=== PATIENT | female | born 1945 | race Caucasian/White ===

== ENCOUNTER 2016-07-16 09:11 | Inpatient (IN) | payer MEDICARE ==
[2016-07-16 10:05] LABS: Urine Drugs of Abuse Note Disclamer
[2016-07-16] MEDS ORDERED: ATIVAN ONE (10:12)
[2016-07-16] MEDS ORDERED: KEPPRA 1,000 MG/NS 0.75% 100ML 1,000 MG/100 ML BAG IV ONE ×2 (10:15→10:19)
[2016-07-16] MEDS ORDERED: ATIVAN IV ONE (10:15)
[2016-07-16 10:34] LABS: Basophils % (Auto) 0.8 % (0.0-1.8); Eosinophils % (Auto) 0.8 % (0.0-4.3); Mean Corpuscular HGB Conc 30 % (30-34); Mean Corpuscular Hemoglobin 28 pg (28-32); Mean Corpuscular Volume 93 fl (79-97); Platelet Count 806 K/mm3 (140-440); Red Blood Count 4.53 M/mm3 (3.65-5.03); Red Cell Distribution Width 19.3 % (13.2-15.2); White Blood Count 17.1 K/mm3 (4.5-11.0)
[2016-07-16 10:37] LABS: Bacteria,Urine 2+ /HPF (Negative); Bilirubin,Urine NEG (Negative); Blood,Urine NEG (Negative); Granular Casts,Urine 18 /LPF; Ketones,Urine NEG (Negative); Leukocyte Esterase,Urine NEG (Negative); Mucus,Urine 2+ /HPF; Nitrite,Urine NEG (Negative); Urobilinogen,Urine < 2.0 mg/dL (<2.0)
[2016-07-16 10:57] LABS: Albumin/Globulin Ratio 1.3 %; BUN/Creatinine Ratio 22.72; Bilirubin,Total 0.3 mg/dL (0.1-1.2); Calcium 8.6 mg/dL (8.4-10.2); Chloride 107.6 mmol/L (98-107); Magnesium 1.8 mg/dL (1.7-2.3); Total Protein 7.1 g/dL (6.3-8.2)
[2016-07-16 11:07] LABS: Hematocrit 42.5 % (30.3-42.9); Hemoglobin 12.8 gm/dl (10.1-14.3)
--- NOTE | 2016-07-16 11:19 | Cat Scan Report ---
CT HEAD WITHOUT CONTRAST: HISTORY: Seizure, altered mental status, headache. TECHNIQUE: Sequential CT images without contrast. FINDINGS: Images obtained show mild bilateral prominence of the sulci and ventricles. There are no abnormal intra- or extra-axial blood or fluid collections. There are no focal masses or evidence of mass effect. The huang white matter differentiation appears within normal limits. Regions of periventricular decreased attenuation are consistent with microangiopathic ischemic disease. The posterior fossa structures including the fourth ventricle, cerebellum, and brainstem appear normal. IMPRESSION: Evidence of mild atrophy and microangiopathic ischemic disease. No acute intracranial process noted.
[2016-07-16] MEDS ORDERED: NACL 0.9% 1000 ML IV ONE (11:25)
--- NOTE | 2016-07-16 11:33 | Emergency Department Report ---
HPI - General Chief Complaint: Altered Mental Status Time Seen by Provider: 07/16/16 10:22 - HPI HPI: Chief complaint: Altered mental status HPI: Patient who lives in some sort of personal detention was brought in for altered mental status by EMS. My first contact with the patient was when she had a seizure here in the emergency department. Patient was given a gram of Keppra and required Ativan while she was having a CAT scan of her head. Patient was seen in at [facility] and treated for hypothermia and a urinary tract infection in May 2016. Unable to get any history from the patient. Patient lives in a transitional type of setting not really a personal detention and according to Ms. Clark she usually gets up and comes down stairs on her own. Patient does not take her medications. According to Ms. Clark she just became altered today. Mode of arrival: EMS Source: Nursing notes and Ms. Clark Began: This morning Duration: Unable to assess Context: See above Quality: Unable to assess Severity: Unable to assess any further Improved with: Worsened with: Associated signs and symptoms: ED Past Medical Hx - Past Medical History Previous Medical History?: Yes Hx Hypertension: Yes Hx Psychiatric Treatment: Yes (schizophrenia) Hx Dementia: Yes - Surgical History Past Surgical History?: Yes Hx Appendectomy: Yes - Social History Smoking Status: Never Smoker Substance Use Type: Prescribed - Medications Home Medications: Home Medications Medication Instructions Recorded Confirmed Last Taken Type Donepezil [Aricept] 10 mg PO QDAY 12/30/14 12/30/14 Unknown History Hydrochlorothiazide [HCTZ] 12.5 mg PO QDAY 12/30/14 12/30/14 Unknown History Memantine HCl [Namenda] 10 mg PO BID 12/30/14 12/30/14 Unknown History Carvedilol [Coreg] 6.25 mg PO BID #60 tablet 05/06/15 Unknown Rx Memantine Xr [Namenda Xr] 28 mg PO QDAY@0800 #60 cap 05/06/15 Unknown Rx Ziprasidone [Geodon] 20 mg PO BIDDIAB #60 capsule 05/06/15 Unknown Rx hydrALAZINE [Apresoline TAB] 50 mg PO Q8HR #90 tablet 05/06/15 Unknown Rx ED Review of Systems ROS: Stated complaint: ALTERED MENTAL STATUS Other details as noted in HPI Comment: Unobtainable due to pts medical conditions (patient post ictal and sedated) Physical Exam - Physical Exam Vital Signs: Vital Signs 07/16/16 07/16/16 07/16/16 09:32 10:07 10:09 Temperature 97 F L 97.4 F L Pulse Rate 120 H 68 76 Respiratory 20 18 Rate Blood Pressure 124/98 Blood Pressure 180/123 [Left] O2 Sat by Pulse 92 94 Oximetry 07/16/16 10:12 Temperature Pulse Rate Respiratory 20 Rate Blood Pressure Blood Pressure [Left] O2 Sat by Pulse 95 Oximetry Physical Exam: GENERAL: The patient is a thin elderly -Bul[place] female who is post ictal. HEENT: Normocephalic. Atraumatic. Edentulous. Patient has dry mucous membranes. NECK: Supple. No meningitic signs are noted. There is no adenopathy noted. CHEST/LUNGS: Clear to auscultation. There is no respiratory distress noted. HEART/CARDIOVASCULAR: Irregular alternating between normal sinus and tachycardia ABDOMEN: Abdomen is soft, nontender. Patient has normal bowel sounds. There is no abdominal distention. SKIN: There is no rash. There is no edema. There is no diaphoresis. NEURO: The patient is post ictal. MUSCULOSKELETAL: There is no tenderness or deformity. There is no evidence of acute injury. ED Course Vital Signs 07/16/16 07/16/16 07/16/16 09:32 10:07 10:09 Temperature 97 F L 97.4 F L Pulse Rate 120 H 68 76 Respiratory 20 18 Rate Blood Pressure 124/98 Blood Pressure 180/123 [Left] O2 Sat by Pulse 92 94 Oximetry 07/16/16 10:12 Temperature Pulse Rate Respiratory 20 Rate Blood Pressure Blood Pressure [Left] O2 Sat by Pulse 95 Oximetry - Reevaluation(s) Reevaluation #1: 07/16/16 11:56 Liza [facility] was consulted for possible sick sinus syndrome and will see the patient in consultation. Hospitalist will admit the patient. Patient was given a liter of normal saline and 20 mEq of potassium will be given IV as K riders ED Medical Decision Making - Lab Data Result diagrams: 07/16/16 10:14 07/16/16 10:14 Laboratory Tests 07/16/16 07/16/16 07/16/16 10:00 10:00 10:14 Lactic Acid 10.6 H* TSH Ur Leukocyte Esterase Neg Urine WBC (Auto) 8.0 H Urine RBC (Auto) 4.0 U Epithel Cells (Auto) 3.0 Urine Bacteria (Auto) 2+ Salicylates Urine Opiates Screen Presumptive negative Urine Methadone Screen Presumptive negative Acetaminophen Ur Barbiturates Screen Presumptive negative Ur Phencyclidine Scrn Presumptive negative Ur Amphetamines Screen Presumptive negative U Benzodiazepines Scrn Presumptive negative Urine Cocaine Screen Presumptive negative U Marijuana (THC) Screen Presumptive negative Plasma/Serum Alcohol 07/16/16 07/16/16 07/16/16 10:14 10:14 10:14 Lactic Acid TSH 9.470 H Ur Leukocyte Esterase Urine WBC (Auto) Urine RBC (Auto) U Epithel Cells (Auto) Urine Bacteria (Auto) Salicylates < 0.3 L Urine Opiates Screen Urine Methadone Screen Acetaminophen < 15.0 Ur Barbiturates Screen Ur Phencyclidine Scrn Ur Amphetamines Screen U Benzodiazepines Scrn Urine Cocaine Screen U Marijuana (THC) Screen Plasma/Serum Alcohol 07/16/16 10:14 Lactic Acid TSH Ur Leukocyte Esterase Urine WBC (Auto) Urine RBC (Auto) U Epithel Cells (Auto) Urine Bacteria (Auto) Salicylates Urine Opiates Screen Urine Methadone Screen Acetaminophen Ur Barbiturates Screen Ur Phencyclidine Scrn Ur Amphetamines Screen U Benzodiazepines Scrn Urine Cocaine Screen U Marijuana (THC) Screen Plasma/Serum Alcohol < 0.01 - EKG Data -: EKG Interpreted by Me EKG shows normal: sinus rhythm Rate: normal (70) - EKG Data When compared to previous EKG there are: no significant change Interpretation: other (normal sinus rhythm with sinus arrhythmia, nonspecific ST -T wave changes.) 07/16/16 11:59 Rhythm strips evaluated and patient alternates between sinus rhythm,, narrow complex tachycardia and a few runs of wide-complex tachycardia and an episode of bradycardia consistent with complete heart block that was short-lived and resolved spontaneously. Critical care attestation.: If time is entered above; I have spent that time in minutes in the direct care of this critically ill patient, excluding procedure time. ED Disposition Clinical Impression: Seizure, Dehydration with hypernatremia, Hypokalemia, Elevated TSH, History of schizophrenia, Leukocytosis Disposition: OP ADMITTED IP TO THIS HOSP Is pt being admited?: Yes Does the pt Need Aspirin: Yes Condition: Serious Time of Disposition: 12:02
[2016-07-16] MEDS: KCL 10MEQ/100ML 10 MEQ/100 ML BAG IV SCH ×2 (11:45→13:07)
[2016-07-16] MEDS ORDERED: ROCEPHIN/NS 1 GM/50 ML 1 GM/50 ML BAG IV ONE (12:05)
[2016-07-16] MEDS ORDERED: ASPIRIN PR ONE (12:12)
--- NOTE | 2016-07-16 12:12 | Admit Criteria Form ---
Admission Criteria Documentation: MENTAL STATUS CHANGE Clinical Indications for Inpatient Care (Place 'X' for any and all applicable criteria): Ongoing inpatient care may be needed for ANY ONE of the following(1)(2)(3)(5)(6) : [X ]I. Suspected serious etiology (eg, medical disorder, CYTOGENETICIST event) of mental status change [ ]II. Danger to self or others not manageable at lower level of care [ ]III. Grave disability (eg, inability to perform self care necessary at lower level of care) [ ]IV. Agitation or inappropriate behavior interfering with care for primary condition (eg, attempting to discontinue lines or drains prematurely, unable to cooperate with respiratory care) [ ]V. Delirium [A] [D][E] as described by ANY ONE of the following(26): [ ]a) Delirium due to alcohol or sedative [F] withdrawal [ ]b) Delirium of uncertain etiology that has not responded to appropriate empiric treatment [ ]c) Delirium that prevents performance of a life-sustaining function (eg, feeding or hydrating oneself) [ X]. General contraindications and/or Inappropriate clinical situations for Observational Care in patients with Mental Status Change, when ANY ONE of the following is required: [X ]a) Prediction of prolongation of LOS based on ANY ONE of the following may be considered as a contraindication for observational care 2, 3, 4, 5, 6, 7, 8, 9, 10, 11 [ ]i) Age > 65 yrs. [ ]ii) Patient arriving by ambulance [ ]iii) Patient with high acuity [ ]iv) Patient requiring vital sign monitoring [ ]v) Patient on IV medication [ ]b) Systolic blood pressures 180mmHg 3,12 [ ]c) Patient with altered mental status including delirium and other alteration of consciousness, (3) [ ]d) Patient whose discharge disposition will be to a intermediate home or rehabilitation home should not be managed in Emergency Department Observation Unit. CMS rule requires 3 days hospital stay before such placement.3,13 [ ]e) Patient with failure to thrive due to broad array of etiologies 3,16,17 [ ]f) Inability to ambulate 3,14 Extended stay beyond goal length of stay for the primary condition may be needed until ALL of the following are present(3)(5): [ ]a) Underlying medical etiology of mental status change is absent, or has been established and adequately treated [ ]b) Danger to self or others is absent or manageable at lower level of care. [ ]c) Behavior crisis management, including physical or chemical restraints, is not required or available at lower level of car [ ]d) Substance or alcohol withdrawal is absent or manageable at lower level of care. [ ]e) Behavioral symptoms (eg, agitation, somnolence, inappropriate behavior) are absent, or are manageable at lower level of care. The original [facility] content created by [facility] has been revised. The portions of the content which have been revised are identified through the use of italic text or in bold, and [facility] has neither reviewed nor approved the modified material. All other unmodified content is copyright [facility]. Please see references footnoted in the original [facility] edition 2016 Admission Criteria Met: Yes
--- NOTE | 2016-07-16 12:55 | Consultation ---
<SÁNCHEZ OSORIO - Last Filed: 07/16/16 15:13> History of Present Illness Consult date: 07/16/16 Consult reason: arrhythmia History of present illness: This is a 71yr old woman that resides at a personnel [facility] who presents to the ED with altered mental status. History unobtainable from patient. Cardiac consultation requested for questionable sick sinus syndrome. Review of telemetry strips shows marked sinus bradycardia followed by a narrow complex tachycardia that resolved spontaneously. The arrhythmia is reported to have occurred while the patient was seizing. Laboratory workup in the ED shows multiple metabolic abnormalities including a potassium of 3.0, TSH of 9.4 and lactic acid of 10.6. An ECG done post seizure shows a sinus rhythm with sinus arrhythmias. No acute ischemic changes. Medications and Allergies Allergies Allergy/AdvReac Type Severity Reaction Status Date / Time No Known Allergies Allergy Unverified 12/30/14 05:41 Home Medications Medication Instructions Recorded Confirmed Last Taken Type Donepezil [Aricept] 10 mg PO QDAY 12/30/14 07/16/16 Unknown History Hydrochlorothiazide [HCTZ] 12.5 mg PO QDAY 12/30/14 07/16/16 Unknown History Memantine HCl [Namenda] 10 mg PO BID 12/30/14 07/16/16 Unknown History Carvedilol [Coreg] 6.25 mg PO BID #60 tablet 05/06/15 07/16/16 Unknown Rx Ziprasidone [Geodon] 20 mg PO BIDDIAB #60 capsule 05/06/15 07/16/16 Unknown Rx Benztropine [Cogentin] 0.5 mg PO BID 07/16/16 07/16/16 Unknown History Ciprofloxacin HCl [Ciprofloxacin 500 mg PO Q12HR 07/16/16 07/16/16 Unknown History TAB] Lurasidone HCl [Latuda] 40 mg PO QDAY 07/16/16 07/16/16 Unknown History amLODIPine [Norvasc] 5 mg PO DAILY 07/16/16 07/16/16 Unknown History Active Meds: Active Medications Potassium Chloride (Kcl 10meq/100ml) 10 meq in 100 mls @ 100 mls/hr IV Q1H ERLINDA Stop: 07/16/16 13:59 Last Admin: 07/16/16 11:45 Dose: 100 mls/hr Physical Examination Vital Signs Temp Pulse Resp BP Pulse Ox 97 F L 120 H 20 124/98 92 07/16/16 09:32 07/16/16 09:32 07/16/16 09:32 07/16/16 09:32 07/16/16 09:32 General appearance: no acute distress Cardiac: Positive: Reg Rate and Rhythm Results 07/16/16 10:14 07/16/16 10:14 Cardiac Enzymes 07/16/16 Range/Units 10:14 AST 63 H (5-40) units/L CBC 07/16/16 Range/Units 10:14 WBC 17.1 H (4.5-11.0) K/mm3 RBC 4.53 (3.65-5.03) M/mm3 Hgb 12.8 (10.1-14.3) gm/dl Hct 42.5 (30.3-42.9) % Plt Count 806 H (140-440) K/mm3 Lymph # 2.6 (1.2-5.4) K/mm3 [place] # 0.7 (0.0-0.8) K/mm3 Eos # 0.1 (0.0-0.4) K/mm3 Baso # 0.1 (0.0-0.1) K/mm3 Comprehensive Metabolic Panel 07/16/16 Range/Units 10:14 Sodium 157 H (137-145) mmol/L Potassium 3.0 L (3.6-5.0) mmol/L Chloride 107.6 H (98-107) mmol/L Carbon Dioxide 25 (22-30) mmol/L BUN 25 H (7-17) mg/dL Creatinine 1.1 (0.7-1.2) mg/dL Glucose 138 H (65-100) mg/dL Calcium 8.6 (8.4-10.2) mg/dL AST 63 H (5-40) units/L ALT 27 (7-56) units/L Alkaline Phosphatase 75 (35-129) units/L Total Protein 7.1 (6.3-8.2) g/dL Albumin 4.0 (3.9-5) g/dL EKG interpretations - Telemetry EKG Rhythm: Sinus Rhythm Assessment and Plan Altered mental status no acute intracranial process by head CT Hypertension -uncontrolled Sinus bradycardia followed by narrow complex tachycardia likely due to multiple metabolic abnormalities Hx of Schizophrenia Dementia Correct metabolic abnormalities. Optimal BP management. Echocardiogram for LVEF assessment. <CORRINE,CHITURU - Last Filed: 07/17/16 13:48> Medications and Allergies Active Meds: Active Medications Acetaminophen (Tylenol) 650 mg PO Q4H PRN PRN Reason: Pain MILD(1-3)/Fever >100.5/CM Amlodipine Besylate (Norvasc) 5 mg PO DAILY [facility] Last Admin: 07/17/16 11:19 Dose: 5 mg Benztropine Mesylate (Cogentin) 0.5 mg PO BID [facility] Last Admin: 07/17/16 11:18 Dose: 0.5 mg Bisacodyl (Dulcolax) 10 mg OR QDAY PRN PRN Reason: Constipation unrelieved by MOM Carvedilol (Coreg) 6.25 mg PO BID [facility] Last Admin: 07/17/16 11:18 Dose: 6.25 mg Donepezil HCl (Aricept) 10 mg PO QDAY [facility] Last Admin: 07/17/16 11:19 Dose: 10 mg Enoxaparin Sodium (Lovenox) 40 mg SUB-Q QDAY [facility] Last Admin: 07/17/16 11:49 Dose: Not Given Hydralazine HCl (Apresoline) 10 mg IV Q4HR PRN PRN Reason: Blood Pressure Last Admin: 07/17/16 02:04 Dose: 10 mg Hydromorphone HCl (Dilaudid) 0.5 mg IV Q3H PRN PRN Reason: Pain , Severe (7-10) Last Admin: 07/17/16 02:02 Dose: 0.5 mg Ceftriaxone Sodium (Rocephin/Ns 2 Gm/100 Ml) 2 gm in 100 mls @ 200 mls/hr IV Q24H [facility] Last Admin: 07/16/16 23:56 Dose: 200 mls/hr Dextrose (D5w) 1,000 mls @ 100 mls/hr IV DIRECT [facility] Last Admin: 07/17/16 08:49 Dose: 100 mls/hr Levetiracetam 500 mg/ Dextrose 105 mls @ 400 mls/hr IV Q12HR [facility] Last Admin: 07/17/16 11:41 Dose: 400 mls/hr Magnesium Hydroxide (Milk Of Magnesia) 30 ml PO Q4H PRN PRN Reason: Constipation Memantine (Namenda Xr) 28 mg PO QDAY [facility] Last Admin: 07/17/16 11:19 Dose: 28 mg Miscellaneous Medication (Lurasidone Hcl [Latuda]) 40 mg PO QDAY [facility] Ondansetron HCl (Zofran) 4 mg IV Q3H PRN PRN Reason: N/V unrelieved by Reglan Last Admin: 07/17/16 07:13 Dose: 4 mg Oxycodone/Acetaminophen (Percocet 5/325) 1 tab PO Q6H PRN PRN Reason: Pain, Moderate (4-6) Ziprasidone (Geodon) 20 mg PO BIDDIAB [facility] Last Admin: 07/17/16 08:28 Dose: 20 mg Physical Examination Vital Signs Temp Pulse Resp BP Pulse Ox 97 F L 120 H 20 124/98 92 07/16/16 09:32 07/16/16 09:32 07/16/16 09:32 07/16/16 09:32 07/16/16 09:32 Results 07/16/16 10:14 07/16/16 10:14 Assessment and Plan - Patient Problems (1) Cardiac arrhythmia Current Visit: Yes Status: Acute Qualifiers: Arrhythmia type: A Atrial fibrillation type: A Atrial flutter type: A Premature depolarization type: P Plan to address problem: The patient's a 71-year-old woman who lives in a [facility], with multiple medical problems. She was admitted to the emergency room with altered mental status. During her emergency room course, she developed a prolonged seizure episode, which was witnessed by the medical team, and apparently resolved spontaneously. Immediately following the seizure, she was noted to develop transient, sinus bradycardia. This was quickly followed by increased supraventricular ectopy, and a short burst of atrial tachycardia. After these rhythm changes, she then settled back into a stable sinus rhythm. Twelve-lead EKGs on presentation and also following the seizure episode and subsequent arrhythmias, where both are normal sinus rhythm, no ischemic changes. The patient's blood pressure remained stable, no hemodynamic changes were reported. No cardiac stimulant agents were administered following the seizure episode. Cardiac consultation was requested for further assessment of the cardiac arrhythmias. Recommendations: The transient bradycardia following seizure episode is likely vagal response. We will get an echocardiogram for left ventricular function assessment. Get prior records of previous cardiac workup and history.
[2016-07-16] MEDS ORDERED: NORMODYNE IV ONE (14:12)
[2016-07-16] MEDS ORDERED: WATER FOR INJ (PF) 10 ML ONE (18:07)
[2016-07-16] MEDS ORDERED: GEODON IM ONE (18:08)
--- NOTE | 2016-07-16 20:01 | History and Physical Report ---
History of Present Illness Date of examination: 07/16/16 Date of admission: 07/16/16 Chief complaint: Altered Mental status since AM History of present illness: 71y/o female sent from [facility] for [facility].Since AM.Patient had UTI and hypothermia in MAY 2016 -was treated at [facility] .Able to come to Dining room for food.Since AM altered sensorium.No fever/chills/Sob. Had seizure in CT room and was given keppra and ativan Past History Past Medical History: hypertension, other (Schizophrenia and Dementia) Past Surgical History: appendectomy Social history: single, other (Lives in a Personal group home/[facility]) Medications and Allergies Allergies Allergy/AdvReac Type Severity Reaction Status Date / Time No Known Allergies Allergy Unverified 12/30/14 05:41 Home Medications Medication Instructions Recorded Confirmed Last Taken Type Donepezil [Aricept] 10 mg PO QDAY 12/30/14 07/16/16 Unknown History Hydrochlorothiazide [HCTZ] 12.5 mg PO QDAY 12/30/14 07/16/16 Unknown History Memantine HCl [Namenda] 10 mg PO BID 12/30/14 07/16/16 Unknown History Carvedilol [Coreg] 6.25 mg PO BID #60 tablet 05/06/15 07/16/16 Unknown Rx Ziprasidone [Geodon] 20 mg PO BIDDIAB #60 capsule 05/06/15 07/16/16 Unknown Rx Benztropine [Cogentin] 0.5 mg PO BID 07/16/16 07/16/16 Unknown History Ciprofloxacin HCl [Ciprofloxacin 500 mg PO Q12HR 07/16/16 07/16/16 Unknown History TAB] Lurasidone HCl [Latuda] 40 mg PO QDAY 07/16/16 07/16/16 Unknown History amLODIPine [Norvasc] 5 mg PO DAILY 07/16/16 07/16/16 Unknown History Review of Systems All systems: negative Neurological: seizures, change in mentation, confusion, memory loss Psychiatric: confusion Exam - Constitutional Vitals: Temp Pulse Resp BP Pulse Ox 97.2 F L 77 24 166/110 96 07/16/16 18:10 07/16/16 18:40 07/16/16 18:40 07/16/16 18:40 07/16/16 18:40 General appearance: Present: no acute distress, well-nourished - EENT Eyes: Present: PERRL ENT: hearing intact, clear oral mucosa - Neck Neck: Present: supple, normal ROM - Respiratory Respiratory effort: normal Respiratory: bilateral: CTA - Cardiovascular Heart Sounds: Present: S1 & S2. Absent: rub, click - Extremities Extremities: pulses symmetrical, No edema Peripheral Pulses: within normal limits - Abdominal General gastrointestinal: Present: soft, non-tender, non-distended, normal bowel sounds Female genitourinary: Present: normal - Integumentary Integumentary: Present: clear, warm, dry - Musculoskeletal Musculoskeletal: gait normal, strength equal bilaterally - Psychiatric Psychiatric: appropriate mood/affect, intact judgment & insight - Neurologic Neurologic: CNII-XII intact, moves all extremities Results - Labs CBC & Chem 7: 07/16/16 10:14 07/16/16 10:14 Labs: Abnormal lab results 07/16/16 07/16/16 07/16/16 Range/Units 10:00 10:14 10:14 WBC 17.1 H (4.5-11.0) K/mm3 RDW 19.3 H (13.2-15.2) % Plt Count 806 H (140-440) K/mm3 Seg Neutrophils % 79.3 H (40.0-70.0) % Seg Neutrophils # 13.5 H (1.8-7.7) K/mm3 Sodium 157 H (137-145) mmol/L Potassium 3.0 L (3.6-5.0) mmol/L Chloride 107.6 H (98-107) mmol/L BUN 25 H (7-17) mg/dL Glucose 138 H (65-100) mg/dL Lactic Acid (0.7-2.0) mmol/L AST 63 H (5-40) units/L TSH (0.270-4.200) mlU/mL Urine WBC (Auto) 8.0 H (0.0-6.0) /HPF Salicylates (2.8-20.0) mg/dL 07/16/16 07/16/16 07/16/16 Range/Units 10:14 10:14 10:14 WBC (4.5-11.0) K/mm3 RDW (13.2-15.2) % Plt Count (140-440) K/mm3 Seg Neutrophils % (40.0-70.0) % Seg Neutrophils # (1.8-7.7) K/mm3 Sodium (137-145) mmol/L Potassium (3.6-5.0) mmol/L Chloride (98-107) mmol/L BUN (7-17) mg/dL Glucose (65-100) mg/dL Lactic Acid 10.6 H* (0.7-2.0) mmol/L AST (5-40) units/L TSH 9.470 H (0.270-4.200) mlU/mL Urine WBC (Auto) (0.0-6.0) /HPF Salicylates < 0.3 L (2.8-20.0) mg/dL 07/16/16 Range/Units 12:09 WBC (4.5-11.0) K/mm3 RDW (13.2-15.2) % Plt Count (140-440) K/mm3 Seg Neutrophils % (40.0-70.0) % Seg Neutrophils # (1.8-7.7) K/mm3 Sodium (137-145) mmol/L Potassium (3.6-5.0) mmol/L Chloride (98-107) mmol/L BUN (7-17) mg/dL Glucose (65-100) mg/dL Lactic Acid 2.6 H* (0.7-2.0) mmol/L AST (5-40) units/L TSH (0.270-4.200) mlU/mL Urine WBC (Auto) (0.0-6.0) /HPF Salicylates (2.8-20.0) mg/dL Short CBC 07/16/16 Range/Units 10:14 WBC 17.1 H (4.5-11.0) K/mm3 Hgb 12.8 (10.1-14.3) gm/dl Hct 42.5 (30.3-42.9) % Plt Count 806 H (140-440) K/mm3 BMP 07/16/16 10:14 Sodium 157 H Potassium 3.0 L Chloride 107.6 H Carbon Dioxide 25 BUN 25 H Creatinine 1.1 Glucose 138 H Calcium 8.6 Liver Function 07/16/16 Range/Units 10:14 Total Bilirubin 0.3 (0.1-1.2) mg/dL AST 63 H (5-40) units/L ALT 27 (7-56) units/L Alkaline Phosphatase 75 (35-129) units/L Albumin 4.0 (3.9-5) g/dL Urine 07/16/16 Range/Units 10:00 Urine Color Yellow (Yellow) Urine pH 5.0 (5.0-7.0) Ur Specific [place] 1.024 (1.003-1.030) Urine Protein 100 mg/dl (Negative) mg/dL Urine Glucose (UA) Neg (Negative) mg/dL Assessment and Plan - Patient Problems (1) Acute hypernatremia Current Visit: Yes Status: Acute Plan to address problem: Etio unclear.Poor po intake??IV D51/2 NS for now. (2) Leukocytosis Current Visit: Yes Status: Acute Qualifiers: Leukocytosis type: L Plan to address problem: IV rocephin for UTI (3) Hypokalemia Current Visit: Yes Status: Acute Plan to address problem: Supplemented.Sec to HCTZ HCTZ discontinued (4) Seizure Current Visit: Yes Status: Acute Plan to address problem: New onset Iv keppra for now.Transition to po Keppra (5) Elevated TSH Current Visit: Yes Status: Acute Plan to address problem: Thyroid panel ordered (6) Schizophrenia Current Visit: Yes Status: Acute Qualifiers: Schizophrenia type: S (7) Schizophrenia Current Visit: No Status: Chronic Qualifiers: Schizophrenia type: paranoid schizophrenia Qualified Code(s): F20.0 - Paranoid schizophrenia Plan to address problem: cont geodon (8) Dementia Current Visit: Yes Status: Chronic Qualifiers: Dementia type: vascular dementia Alzheimer's disease onset: A Dementia behavioral disturbance: D Plan to address problem: Cont Namenda (9) Sepsis Current Visit: Yes Status: Acute Qualifiers: Sepsis type: sepsis due to unspecified organism Qualified Code(s): A41.9 - Sepsis, unspecified organism Plan to address problem: IV rocephin for now (10) DVT prophylaxis Current Visit: Yes Status: Acute Plan to address problem: Lkovenox 40 mg sq qd
[2016-07-16] MEDS ORDERED: ZOFRAN IV PRN (20:04)
[2016-07-16] MEDS ORDERED: TYLENOL PO PRN (20:04)
[2016-07-16] MEDS ORDERED: PERCOCET 5/325 PO PRN (20:04)
[2016-07-16] MEDS ORDERED: DILAUDID IV PRN (20:04)
[2016-07-16] MEDS ORDERED: DULCOLAX PR PRN (20:04)
[2016-07-16] MEDS ORDERED: MILK OF MAGNESIA PO PRN (20:04)
[2016-07-16] MEDS ORDERED: ROCEPHIN 2,000 MG in NACL 0.9% 50 ML IV SCH (21:00)
[2016-07-16] MEDS ORDERED: D5W/0.45% NACL/KCL 20 MEQ 20 MEQ/1,000 ML BAG IV SCH (21:00)
[2016-07-16] MEDS ORDERED: NORVASC ONE (21:15)
[2016-07-16] MEDS ORDERED: APRESOLINE IV PRN (21:18)
[2016-07-16] MEDS: NORVASC PO SCH (21:25)
[2016-07-16] MEDS ORDERED: NON-FORMULARY (Memantine Hcl [Namenda] 10 MG) PO SCH (22:00)
[2016-07-16] MEDS: ROCEPHIN/NS 2 GM/100 ML 2 GM/100 ML BAG IV SCH (23:56)
[2016-07-16] MEDS: COGENTIN PO SCH (23:56)
[2016-07-16] MEDS: COREG PO SCH (23:58)
[2016-07-17] MEDS: GEODON PO SCH ×2 (08:28→19:02)
[2016-07-17] MEDS: D5W 1,000 ML IV SCH ×2 (08:49→23:15)
[2016-07-17] MEDS ORDERED: HCTZ PO SCH (10:00)
[2016-07-17] MEDS ORDERED: NON-FORMULARY (Lurasidone Hcl [Latuda] 40 MG) PO SCH (10:00)
--- NOTE | 2016-07-17 10:12 | Consultation ---
History of Present Illness Consult date: 07/17/16 Requesting physician: DACIA NAVARRO Reason for Consult: seizure Chief complaint: hungry History of present illness: 71 YO F Hx dementia w/ behavioral disturbance resident of assisted living facility p/w AMS. She was reportedly witnessed to have Sz in ED. Duration is unclear. There were no aggravating factors. She may have had recurrence in CTH that resolved w/ Ativan. There are no clear temporal factors although pt cannot expound upon Hx d/t dementia. Severity was such to cause LOC reportedly. She has improved from a MS standpoint since admit to floor. Past History Past Medical History: hypertension, other (Schizophrenia and Dementia) Past Surgical History: appendectomy Social history: single, other (Lives in a Personal retirement/jail) Medications and Allergies Allergies Allergy/AdvReac Type Severity Reaction Status Date / Time No Known Allergies Allergy Unverified 12/30/14 05:41 Home Medications Medication Instructions Recorded Confirmed Last Taken Type Donepezil [Aricept] 10 mg PO QDAY 12/30/14 07/16/16 Unknown History Hydrochlorothiazide [HCTZ] 12.5 mg PO QDAY 12/30/14 07/16/16 Unknown History Memantine HCl [Namenda] 10 mg PO BID 12/30/14 07/16/16 Unknown History Carvedilol [Coreg] 6.25 mg PO BID #60 tablet 05/06/15 07/16/16 Unknown Rx Ziprasidone [Geodon] 20 mg PO BIDDIAB #60 capsule 05/06/15 07/16/16 Unknown Rx Benztropine [Cogentin] 0.5 mg PO BID 07/16/16 07/16/16 Unknown History Ciprofloxacin HCl [Ciprofloxacin 500 mg PO Q12HR 07/16/16 07/16/16 Unknown History TAB] Lurasidone HCl [Latuda] 40 mg PO QDAY 07/16/16 07/16/16 Unknown History amLODIPine [Norvasc] 5 mg PO DAILY 07/16/16 07/16/16 Unknown History Active Meds: Active Medications Acetaminophen (Tylenol) 650 mg PO Q4H PRN PRN Reason: Pain MILD(1-3)/Fever >100.5/CM Amlodipine Besylate (Norvasc) 5 mg PO DAILY [facility] Last Admin: 07/16/16 21:25 Dose: 5 mg Benztropine Mesylate (Cogentin) 0.5 mg PO BID [facility] Last Admin: 07/16/16 23:56 Dose: 0.5 mg Bisacodyl (Dulcolax) 10 mg [place] QDAY PRN PRN Reason: Constipation unrelieved by MOM Carvedilol (Coreg) 6.25 mg PO BID [facility] Last Admin: 07/16/16 23:58 Dose: 6.25 mg Donepezil HCl (Aricept) 10 mg PO QDAY [facility] Enoxaparin Sodium (Lovenox) 40 mg SUB-Q QDAY [facility] Hydralazine HCl (Apresoline) 10 mg IV Q4HR PRN PRN Reason: Blood Pressure Last Admin: 07/17/16 02:04 Dose: 10 mg Hydromorphone HCl (Dilaudid) 0.5 mg IV Q3H PRN PRN Reason: Pain , Severe (7-10) Last Admin: 07/17/16 02:02 Dose: 0.5 mg Ceftriaxone Sodium (Rocephin/Ns 2 Gm/100 Ml) 2 gm in 100 mls @ 200 mls/hr IV Q24H [facility] Last Admin: 07/16/16 23:56 Dose: 200 mls/hr Dextrose (D5w) 1,000 mls @ 100 mls/hr IV DIRECT [facility] Last Admin: 07/17/16 08:49 Dose: 100 mls/hr Levetiracetam 500 mg/ Dextrose 105 mls @ 400 mls/hr IV Q12HR [facility] Magnesium Hydroxide (Milk Of Magnesia) 30 ml PO Q4H PRN PRN Reason: Constipation Memantine (Namenda Xr) 28 mg PO QDAY [facility] Miscellaneous Medication (Lurasidone Hcl [Latuda]) 40 mg PO QDAY [facility] Ondansetron HCl (Zofran) 4 mg IV Q3H PRN PRN Reason: N/V unrelieved by Reglan Last Admin: 07/17/16 07:13 Dose: 4 mg Oxycodone/Acetaminophen (Percocet 5/325) 1 tab PO Q6H PRN PRN Reason: Pain, Moderate (4-6) Ziprasidone (Geodon) 20 mg PO BIDDIAB [facility] Last Admin: 07/17/16 08:28 Dose: 20 mg Review of Systems ROS unobtainable: due to mental status Neurological: no seizures, no syncope, no convulsions, no change in mentation, no memory loss Physical Examination - Vital Signs Vital Signs: Vital Signs Temp Pulse Resp BP Pulse Ox 97 F L 120 H 20 124/98 92 07/16/16 09:32 07/16/16 09:32 07/16/16 09:32 07/16/16 09:32 07/16/16 09:32 - Constitutional General appearance: comfortable - EENT EENT: Present: ATNC, PERRL, mucous membranes dry, hearing intact, vision intact - Respiratory Respiratory: Present: chest non-tender, normal breath sounds, no respiratory distress - Cardiovascular Cardiovascular: Present: regular rate Extremities: Present: no peripheral edema bilatateraly, no clubbing, cyanosis, no inflammation, no ischemia or petechiae - Gastrointestinal Gastrointestinal: Present: normoactive bowel sounds, non-distended - Integumentary Integumentary: Present: normal - Neurologic Cranial nerve examination: PERRL, EOMI, VFF, V1/V2/V3 grossly intact, face symmetric, tongue midline, intact Speech examination: intact Sensorimotor examination: intact Detailed motor examination: grossly full strength in Motor examination - right side: 1/5: biceps Motor examination - left side: 5/5: biceps, triceps, wrist flexion, wrist extension, hose turner, hip flexors, knee extensors, dorsiflexion, toe extension (EHL) , plantarflexion Detailed sensory examination: intact, light touch, temperature Reflex and gait examination: intact Reflexes: 0: ankle, 1+: tricep, 2+: bicep, knee - Musculoskeletal Musculoskeletal: Present: no fluid collection, no pain, normal range of motion - Psychiatric Psychiatric: Present: mood/affect appropriate, cooperative Results - Laboratory Findings CBC and BMP: 07/16/16 10:14 07/16/16 10:14 Assessment and Plan 71 YO F Hx dementia w/ behavioral disturbance p/w AMS and reportedly witnessed GTC seizure in ED & CTH but no clear description available. CTH neg. Neuro exam nonfocal intact aside from disorientation and impaired fund of knowledge/ reasoning but suspect this is chronic from dementia. She has been found to have marked dehydration, elevated TSH and UTI/sepsis so I suspect this is provoked first lifetime seizure. Plan and Recommendation: 1. Telemetry bed w/ Q4 hour neuro checks & Sz precautions 2. Labs: Serum/Urine Tox, UA/UCx, Electrolytes especially Na, Ca, Mg, and Glucose, TSH, 3. AED therapy: Continue Keppra 500mg BID 4. Avoid meds that can lower sz threshold e.g. Tramadol, fluroquinolones, carbapenems 5. Cont home meds for dementia: Aricept 10mg Qday, Namenda 10mg BID, etc. 6. Pt advised of [place] driving regulations: report date of presumed Seizure/ unexplained loss of consciousness/awareness spell to [facility], refrain from operating a motor vehicle for 6 months after this date, and avoid unsupervised activity particularly around water or heights 7. Neurologically clear for discharge once resolved fully to baseline w/o recurrent seizure for 24 hrs. 8. Follow up as outpt with Neurology
--- NOTE | 2016-07-17 10:19 | Progress Note ---
Assessment and Plan Altered mental status no acute intracranial process by head CT Hypertension -uncontrolled Sinus bradycardia followed by narrow complex tachycardia likely due to multiple metabolic abnormalities Hx of Schizophrenia Dementia Echocardiogram for LVEF assessment. Subjective Date of service: 07/17/16 Interval history: Patient alert and oriented. She denies chest pain and shortness of breath. Objective Vital Signs Temp Pulse Pulse Resp BP BP Pulse Ox 07/17/16 09:38 95 07/17/16 07:37 98.1 F 81 16 145/66 96 07/17/16 04:00 98.4 F 84 20 150/70 98 07/17/16 02:04 96 H 160/102 07/17/16 02:02 24 07/17/16 00:00 98.0 F 89 22 160/78 99 07/16/16 23:58 104 H 180/100 07/16/16 22:00 100 H 24 07/16/16 21:25 73 170/100 07/16/16 21:00 73 23 170/100 95 - Physical Examination General: No Apparent Distress HEENT: Positive: PERRL Cardiac: Positive: Reg Rate and Rhythm Lungs: Positive: Decreased Breath Sounds
[2016-07-17] MEDS: COREG PO SCH ×2 (11:18→23:48)
[2016-07-17] MEDS: COGENTIN PO SCH ×2 (11:18→23:48)
[2016-07-17] MEDS: NORVASC PO SCH (11:19)
[2016-07-17] MEDS: ARICEPT PO SCH (11:19)
[2016-07-17] MEDS: NAMENDA XR PO SCH (11:19)
[2016-07-17] MEDS: KEPPRA 500 MG in D5W 100 ML IV SCH (11:41)
[2016-07-17] MEDS: LOVENOX SUB-Q SCH (11:49)
[2016-07-17 14:16] LABS: Basophils % (Auto) 0.2 % (0.0-1.8); Eosinophils % (Auto) 0.9 % (0.0-4.3); Hematocrit 39.7 % (30.3-42.9); Hemoglobin 12.3 gm/dl (10.1-14.3); Mean Corpuscular HGB Conc 31 % (30-34); Mean Corpuscular Hemoglobin 29 pg (28-32); Mean Corpuscular Volume 92 fl (79-97); Platelet Count 497 K/mm3 (140-440); Red Blood Count 4.32 M/mm3 (3.65-5.03); Red Cell Distribution Width 19.1 % (13.2-15.2); White Blood Count 9.3 K/mm3 (4.5-11.0)
[2016-07-17 14:34] LABS: Anion Gap 16 mmol/L; BUN/Creatinine Ratio 27.77; Blood Urea Nitrogen 25 mg/dL (7-17); Calcium 8.1 mg/dL (8.4-10.2); Carbon Dioxide 27 mmol/L (22-30); Chloride 106.5 mmol/L (98-107); Glucose 85 mg/dL (65-100); Potassium 4.1 mmol/L (3.6-5.0); Sodium 145 mmol/L (137-145)
[2016-07-17 14:39] LABS: Alanine Aminotransferase 46 units/L (7-56); Albumin 3.3 g/dL (3.9-5); Albumin/Globulin Ratio 1.1 %; Alkaline Phosphatase 86 units/L (35-129); Anion Gap 18 mmol/L; BUN/Creatinine Ratio 28.88; Bilirubin,Total 0.4 mg/dL (0.1-1.2); Blood Urea Nitrogen 26 mg/dL (7-17); Calcium 8.2 mg/dL (8.4-10.2); Carbon Dioxide 25 mmol/L (22-30); Chloride 107.2 mmol/L (98-107); Glucose 86 mg/dL (65-100); Total Protein 6.3 g/dL (6.3-8.2)
[2016-07-17 15:25] LABS: Potassium 4.1 mmol/L (3.6-5.0); Sodium 146 mmol/L (137-145)
--- NOTE | 2016-07-17 17:31 | Progress Note ---
Assessment and Plan Assessment and plan: 71y/o female sent from long-term for AMS. Since AM. Patient had UTI and hypothermia in MAY 2016 -was [place] at [facility] [place]Able to come to Dining room for food.Since AM altered sensorium.No fever/chills/Sob. Had seizure in CT room and was given keppra and ativan. * Acute encephalopathy * Seizure-new onset * Hypernatremia * Dementia * Hypokalemia * Hypertension * Schizophrenia with paranoid Plan * Continue current therapy * Echocardiogram and cardiology consult appreciated * Start on Keppra neurology input noted * Blood pressure better controlled continue home medication * DVT and GI prophylaxis A History Interval history: Follow Up -AMS Patient seen and examined, in no acute distress. more awake, in no acute distress. states she tolerated diet well this morning. no new complaints from Nursing. Hospitalist Physical - Physical exam Narrative exam: VITAL SIGNS: Reviewed. GENERAL: The patient appeared well nourished and normally developed. Vital signs as documented. HEAD: No signs of head trauma. EYES: Pupils are equal. Extraocular motions intact. EARS: Hearing grossly intact. MOUTH: Oropharynx is normal. NECK: No adenopathy, no JVD. CHEST: Chest with clear breath sounds bilaterally. No wheezes, rales, or rhonchi. CARDIAC: Regular rate and rhythm. S1 and S2, without murmurs, gallops, or rubs. VASCULAR: No Edema. Peripheral pulses normal and equal in all extremities. ABDOMEN: Soft, without detectable tenderness. No sign of distention. No rebound or guarding, and no masses palpated. Bowel Sounds normal. MUSCULOSKELETAL: Good range of motion of all major joints. Extremities without clubbing, cyanosis or edema. NEUROLOGIC EXAM: Alert and oriented x 3. No focal sensory or strength deficits. Speech normal. Follows commands. PSYCHIATRIC: Mood normal. SKIN: No rash or lesions. - Constitutional Vitals: Temp Pulse Resp BP Pulse Ox 98.1 F 85 16 136/69 98 07/17/16 16:16 07/17/16 16:16 07/17/16 16:16 07/17/16 16:16 07/17/16 16:16 General appearance: Present: no acute distress, well-nourished Results - Labs CBC & Chem 7: 07/18/16 07:09 07/18/16 07:09 Labs: Laboratory Last Values WBC 9.3 K/mm3 (4.5-11.0) 07/17/16 13:45 RBC 4.32 M/mm3 (3.65-5.03) 07/17/16 13:45 Hgb 12.3 gm/dl (10.1-14.3) 07/17/16 13:45 Hct 39.7 % (30.3-42.9) 07/17/16 13:45 MCV 92 fl (79-97) 07/17/16 13:45 MCH 29 pg (28-32) 07/17/16 13:45 MCHC 31 % (30-34) 07/17/16 13:45 RDW 19.1 % (13.2-15.2) H 07/17/16 13:45 Plt Count 497 K/mm3 (140-440) H 07/17/16 13:45 Lymph % (Auto) 5.1 % (13.4-35.0) L 07/17/16 13:45 [place] % (Auto) 5.7 % (0.0-7.3) 07/17/16 13:45 Eos % (Auto) 0.9 % (0.0-4.3) 07/17/16 13:45 Baso % (Auto) 0.2 % (0.0-1.8) 07/17/16 13:45 Lymph # 0.5 K/mm3 (1.2-5.4) L 07/17/16 13:45 [place] # 0.5 K/mm3 (0.0-0.8) 07/17/16 13:45 Eos # 0.1 K/mm3 (0.0-0.4) 07/17/16 13:45 Baso # 0.0 K/mm3 (0.0-0.1) 07/17/16 13:45 Seg Neutrophils % 88.1 % (40.0-70.0) H 07/17/16 13:45 Seg Neutrophils # 8.2 K/mm3 (1.8-7.7) H 07/17/16 13:45 Sodium 146 mmol/L (137-145) H D 07/17/16 13:45 Potassium 4.1 mmol/L (3.6-5.0) D 07/17/16 13:45 Chloride 106.5 mmol/L (98-107) 07/17/16 13:45 Carbon Dioxide 27 mmol/L (22-30) 07/17/16 13:45 Anion Gap 16 mmol/L 07/17/16 13:45 BUN 25 mg/dL (7-17) H 07/17/16 13:45 Creatinine 0.9 mg/dL (0.7-1.2) 07/17/16 13:45 Estimated GFR > 60 ml/min 07/17/16 13:45 BUN/Creatinine Ratio 27.77 % 07/17/16 13:45 Glucose 85 mg/dL (65-100) 07/17/16 13:45 Lactic Acid 2.6 mmol/L (0.7-2.0) H* 07/16/16 12:09 Calcium 8.1 mg/dL (8.4-10.2) L 07/17/16 13:45 Magnesium 1.8 mg/dL (1.7-2.3) 07/16/16 10:14 Total Bilirubin 0.4 mg/dL (0.1-1.2) 07/17/16 13:45 AST 60 units/L (5-40) H 07/17/16 13:45 ALT 46 units/L (7-56) 07/17/16 13:45 Alkaline Phosphatase 86 units/L (35-129) 07/17/16 13:45 Total Protein 6.3 g/dL (6.3-8.2) 07/17/16 13:45 Albumin 3.3 g/dL (3.9-5) L 07/17/16 13:45 Albumin/Globulin Ratio 1.1 % 07/17/16 13:45 TSH 1.460 mlU/mL (0.270-4.200) 07/17/16 13:45 Free T4 1.28 ng/dL (0.76-1.46) 07/17/16 13:45 Urine Color Yellow (Yellow) 07/16/16 10:00 Urine Turbidity Cloudy (Clear) 07/16/16 10:00 Urine pH 5.0 (5.0-7.0) 07/16/16 10:00 Ur Specific [place] 1.024 (1.003-1.030) 07/16/16 10:00 Urine Protein 100 mg/dl mg/dL (Negative) 07/16/16 10:00 Urine Glucose (UA) Neg mg/dL (Negative) 07/16/16 10:00 Urine Ketones Neg mg/dL (Negative) 07/16/16 10:00 Urine Blood Neg (Negative) 07/16/16 10:00 Urine Nitrite Neg (Negative) 07/16/16 10:00 Ur Reducing Substances Not Reportable 07/16/16 10:00 Urine Bilirubin Neg (Negative) 07/16/16 10:00 Urine Ictotest Not Reportable 07/16/16 10:00 Urine Urobilinogen < 2.0 mg/dL (<2.0) 07/16/16 10:00 Ur Leukocyte Esterase Neg (Negative) 07/16/16 10:00 Urine WBC (Auto) 8.0 /HPF (0.0-6.0) H 07/16/16 10:00 Urine RBC (Auto) 4.0 /HPF (0.0-6.0) 07/16/16 10:00 U Epithel Cells (Auto) 3.0 /HPF (0-13.0) 07/16/16 10:00 Urine Bacteria (Auto) 2+ /HPF (Negative) 07/16/16 10:00 Amorphous Crystals Few 07/16/16 10:00 Hyaline Casts 14 /LPF 07/16/16 10:00 Granular Casts 18 /LPF 07/16/16 10:00 Urine Mucus 2+ /HPF 07/16/16 10:00 Urine HCG, Qual Negative (Negative) 07/16/16 10:00 Salicylates < 0.3 mg/dL (2.8-20.0) L 07/16/16 10:14 Urine Opiates Screen Presumptive negative 07/16/16 10:00 Urine Methadone Screen Presumptive negative 07/16/16 10:00 Acetaminophen < 15.0 ug/mL (10.0-30.0) 07/16/16 10:14 Ur Barbiturates Screen Presumptive negative 07/16/16 10:00 Ur Phencyclidine Scrn Presumptive negative 07/16/16 10:00 Ur Amphetamines Screen Presumptive negative 07/16/16 10:00 U Benzodiazepines Scrn Presumptive negative 07/16/16 10:00 Urine Cocaine Screen Presumptive negative 07/16/16 10:00 U Marijuana (THC) Screen Presumptive negative 07/16/16 10:00 Drugs of Abuse Note Disclamer 07/16/16 10:00 Plasma/Serum Alcohol < 0.01 gm% (0-0.07) 07/16/16 10:14 - Imaging and Cardiology CT Scan - head: image reviewed (CT NEGATIVE)
[2016-07-17] MEDS: ROCEPHIN/NS 2 GM/100 ML 2 GM/100 ML BAG IV SCH (23:15)
[2016-07-18 05:49] VITALS: BP 138/82
[2016-07-18] MEDS: KEPPRA 500 MG in D5W 100 ML IV SCH ×2 (05:50→10:48)
[2016-07-18 07:46] LABS: Hematocrit 33.5 % (30.3-42.9); Hemoglobin 10.9 gm/dl (10.1-14.3); Mean Corpuscular HGB Conc 33 % (30-34); Mean Corpuscular Hemoglobin 29 pg (28-32); Mean Corpuscular Volume 90 fl (79-97); Platelet Count 487 K/mm3 (140-440); Red Blood Count 3.72 M/mm3 (3.65-5.03); Red Cell Distribution Width 18.9 % (13.2-15.2); White Blood Count 8.5 K/mm3 (4.5-11.0)
[2016-07-18 07:55] LABS: BUN/Creatinine Ratio 23.33; Calcium 7.8 mg/dL (8.4-10.2); Chloride 99.7 mmol/L (98-107); Potassium 4.1 mmol/L (3.6-5.0)
--- NOTE | 2016-07-18 08:49 | Discharge Summary ---
Providers - Providers Date of Admission: 07/16/16 20:04 Date of discharge: 07/18/16 Attending physician: ERAN EVANS MD 07/17/16 08:23 Consult to Physician [CONS] Routine Consulting Provider: MARIA L JONES Reason For Exam: seizure Place consult to:: DR. JONES Notified:: OFFICE Phone number called:: [phone] Was contact made?: Yes If yes, spoke with:: DR. JONES Time called:: 09:19 Comment:: PAT NOTIFIED Primary care physician: SEWER PIPE SORTER Hospitalization Reason for admission: altered mental status Condition: Stable Hospital course: 71y/o female sent from [facility] for AMS. Since AM. Patient had UTI and hypothermia in MAY 2016 -was treated at [facility] .Able to come to Dining room for food.Since AM altered sensorium.No fever/chills/Sob. Had seizure in CT room and was given keppra and ativan. She was seen by neurology for mental status improved remarkably. Suspected. She was continued on Keppra. We did review her records and previous history here she does have paranoid schizophrenia. Will also discussed with her manufacturing machine operator who states that the patient often all home medication in the trash. We did discuss ways to bring up her medications just the week. Prescriptions for medications of the manufacturing machine operator's request. She is clinically improved at this time as stated ready for discharge. Cardiology also saw no further cardiac workup indicated. Discharge diagnosis * Acute encephalopathy * Seizure-new onset * Hypernatremia * Dementia * Hypokalemia * Hypertension * Schizophrenia with paranoia Disposition: DC/TX SNF [facility] Time spent for discharge: 35 Core Measure Documentation - Palliative Care Palliative Care/ Comfort Measures: Not Applicable - Core Measures Any of the following diagnoses?: none - VTE Discharge Requirements Deep Vein Thrombosis/Pulmonary Embolism Present on Admission: No Exam - Physical Exam Narrative exam: VITAL SIGNS: Reviewed. GENERAL: The patient appeared well nourished and normally developed. Vital signs as documented. HEAD: No signs of head trauma. EYES: Pupils are equal. Extraocular motions intact. EARS: Hearing grossly intact. MOUTH: Oropharynx is normal. NECK: No adenopathy, no JVD. CHEST: Chest with clear breath sounds bilaterally. No wheezes, rales, or rhonchi. CARDIAC: Regular rate and rhythm. S1 and S2, without murmurs, gallops, or rubs. VASCULAR: No Edema. Peripheral pulses normal and equal in all extremities. ABDOMEN: Soft, without detectable tenderness. No sign of distention. No rebound or guarding, and no masses palpated. Bowel Sounds normal. MUSCULOSKELETAL: Good range of motion of all major joints. Extremities without clubbing, cyanosis or edema. NEUROLOGIC EXAM: Alert and oriented x 3. No focal sensory or strength deficits. Speech normal. Follows commands. PSYCHIATRIC: Mood normal. SKIN: No rash or lesions. - Constitutional Vitals: Temp Pulse Resp BP Pulse Ox 98.2 F 80 16 118/84 98 07/18/16 01:31 07/18/16 05:32 07/18/16 05:32 07/18/16 01:31 07/18/16 01:31 Plan Activity: advance as tolerated, no driving until cleared by PCP, fall precautions Diet: low salt Special Instructions: record daily BP diary Additional Instructions: follow with neurologist Follow up with: PRIMARY CARE, [Primary Care Provider] - 7 Days Prescriptions: amLODIPine [Norvasc] 5 mg PO DAILY #30 tablet Benztropine [Cogentin] 0.5 mg PO BID #60 tablet Carvedilol [Coreg] 6.25 mg PO BID #60 tablet Donepezil [Aricept] 10 mg PO QDAY #30 tablet Hydrochlorothiazide [HCTZ] 12.5 mg PO QDAY #30 capsule levETIRAcetam [Keppra TAB] 500 mg PO BID #60 tablet Lurasidone HCl [Latuda] 40 mg PO QDAY #30 tablet Memantine Xr [Namenda Xr] 28 mg PO QDAY #30 cap
--- NOTE | 2016-07-18 09:34 | Progress Note ---
Subjective Date of service: 07/18/16 Interval history: Altered mental status no acute intracranial process by head CT Hypertension -uncontrolled Sinus bradycardia followed by narrow complex tachycardia likely due to multiple metabolic abnormalities Hx of Schizophrenia Dementia No further cardiac w/u intended Objective Vital Signs Temp Pulse Pulse Pulse Resp BP BP 07/18/16 05:32 80 16 07/18/16 01:31 98.2 F 76 18 07/17/16 23:48 84 138/82 07/17/16 16:16 98.1 F 85 16 136/69 07/17/16 11:19 145/66 07/17/16 11:18 145/66 07/17/16 09:38 BP Pulse Ox 07/18/16 05:32 07/18/16 01:31 118/84 98 07/17/16 23:48 07/17/16 16:16 98 07/17/16 11:19 07/17/16 11:18 07/17/16 09:38 95 - Physical Examination General: No Apparent Distress HEENT: Positive: PERRL Cardiac: Positive: Reg Rate and Rhythm, S1/S2 Lungs: Positive: Normal Exam - Labs and Meds Cardiac Enzymes 07/17/16 Range/Units 13:45 AST 60 H (5-40) units/L CBC 07/17/16 07/18/16 Range/Units 13:45 07:09 WBC 9.3 8.5 (4.5-11.0) K/mm3 RBC 4.32 3.72 (3.65-5.03) M/mm3 Hgb 12.3 10.9 (10.1-14.3) gm/dl Hct 39.7 (30.3-42.9) % Plt Count 497 H 487 H (140-440) K/mm3 Lymph # 0.5 L (1.2-5.4) K/mm3 [place] # 0.5 (0.0-0.8) K/mm3 Eos # 0.1 (0.0-0.4) K/mm3 Baso # 0.0 (0.0-0.1) K/mm3 Comprehensive Metabolic Panel 07/17/16 07/17/16 07/18/16 Range/Units 13:45 13:45 07:09 Sodium 146 H D 145 138 (137-145) mmol/L Potassium 4.1 D 4.1 4.1 (3.6-5.0) mmol/L Chloride 107.2 H 106.5 99.7 (98-107) mmol/L Carbon Dioxide 25 27 29 (22-30) mmol/L BUN 26 H 25 H 28 H (7-17) mg/dL Creatinine 0.9 0.9 1.2 (0.7-1.2) mg/dL Glucose 86 85 85 (65-100) mg/dL Calcium 8.2 L 8.1 L 7.8 L (8.4-10.2) mg/dL AST 60 H (5-40) units/L ALT 46 (7-56) units/L Alkaline Phosphatase 86 (35-129) units/L Total Protein 6.3 (6.3-8.2) g/dL Albumin 3.3 L (3.9-5) g/dL
[2016-07-18] MEDS: GEODON PO SCH (09:37)
[2016-07-18] MEDS: ARICEPT PO SCH (09:37)
[2016-07-18] MEDS: COREG PO SCH (09:40)
[2016-07-18] MEDS: COGENTIN PO SCH (09:40)
[2016-07-18] MEDS: NAMENDA XR PO SCH (09:41)
[2016-07-18] MEDS: NORVASC PO SCH (09:41)
[2016-07-18] MEDS: LOVENOX SUB-Q SCH (09:41)
== END 2016-07-18 13:30 | DRG 871 ==
LOC: ED 09:11 → 3A 20:04
PROVIDERS: ADMIT Internal Medicine; ATTEND Internal Medicine
DX: A41.9 Sepsis, unspecified organism (principal); G93.41 Metabolic encephalopathy; E87.0 Hyperosmolality and hypernatremia; F20.0 Paranoid schizophrenia; N39.0 Urinary tract infection, site not specified; E87.6 Hypokalemia; R56.9 Unspecified convulsions; I10 Essential (primary) hypertension; F03.90 Unspecified dementia, unspecified severity, without behavioral disturbance, psychotic disturbance, mood disturbance, and anxiety; E86.0 Dehydration; Z90.49 Acquired absence of other specified parts of digestive tract; Z79.899 Other long term (current) drug therapy
CPT/HCPCS: 36415; 70450; 80048; 80053; 80307; 80320; 81001; 81025; 82140; 83735; 84439; 84443; 85025; 85027; 87040; 87086; 93005; 93010; 96372; 96374; 96375; G0480; J0360; J0696; J1170; J1650; J1953; J2060; J2405; J3480; J3486; J7030; J7070